=== PATIENT | female | born 1990 | race Caucasian/White ===

== ENCOUNTER → 2017-12-26 18:09 | Outpatient (REF) | payer BC, SELFPAY ==
[2017-12-26 20:55] LABS: Abs Immature Grans 0.02 k/cumm (0.0-0.09); Absolute Basophil Count 0.06 k/cumm (0.0-0.2); Absolute Lymphocyte Count 3.62 k/cumm (1.2-3.4); Absolute Monocyte Count 0.55 k/cumm (0.11-0.7); Basophils % 0.6; Eosinophils % 5.2; HCT 41.8 % (36.0-46.0); HGB 14.3 g/dL (12.0-15.5); Immature Grans % 0.2; Lymphocytes % 37.5; Mean Corp. HGB Concentration 34.2 g/dL (32.0-36.0); Mean Corpuscular Hemoglobin 29.8 pg (27.0-33.0); Mean Corpuscular Volume 87.1 fL (80-95); Mean Platelet Volume 10.4 fL (8.0-11.0); Monocytes % 5.7; Neutrophils % 50.8; Platelet Count 359 x1000/uL (130-400); RBC Distribution Width 12.2 % (11.7-14.6); White Blood Cell Count 9.65 k/cumm (4.4-10.8)
[2017-12-26 21:37] LABS: ESR 9 MM/HR (0-20)
[2017-12-26 21:44] LABS: ALT 35 U/L (12-78); AST 20 U/L (15-37); Albumin 4.1 g/dL (3.4-5.0); Alkaline Phosphatase 46 U/L (46-116); Amylase 35 U/L (25-115); Anion Gap 14.6 mmol/L (3-11); BUN 12 mg/dL (7-18); Bilirubin, Total 0.3 mg/dL (0.2-1.0); CO2 22.4 mmol/L (21.0-32.0); CREATININE 0.81 mg/dL (0.55-1.02); Calcium 8.9 mg/dL (8.5-10.1); Chloride 104 mmol/L (98-107); Glucose 81 mg/dL (70-100); Lipase 111 U/L (73-393); Potassium 3.8 mmol/L (3.5-5.1); Sodium 141 mmol/L (136-145); Total Protein 7.2 g/dL (6.4-8.2)
== END ==
LOC: NCHCN 18:09
PROVIDERS: PCP Internal Medicine; Visit Provider Nurse Practitioner
DX: R10.9 Unspecified abdominal pain (principal)
CPT/HCPCS: 80053; 83690; 85652; 82150; 85025; 86140

== ENCOUNTER 2018-01-27 16:22 | Outpatient (CLI) | payer BC, SELFPAY ==
[2018-01-27 18:19] LABS: TSH (W/Ref FT4) 2.72 uIU/mL (0.358-3.74)
[2018-01-29 14:21] LABS: Chlamydia Result Negative; GC Result Negative; Specimen Description CERVIX
== END 2018-01-27 16:42 ==
PROVIDERS: PCP Internal Medicine; Visit Provider Obstetrics & Gynecology Gynecology
DX: Z11.3 Encounter for screening for infections with a predominantly sexual mode of transmission (principal); Z13.29 Encounter for screening for other suspected endocrine disorder; R53.83 Other fatigue
CPT/HCPCS: 36415; 87491; 87591; 84443

== ENCOUNTER 2019-01-15 10:31 | Outpatient (REF) | payer BC, SELFPAY ==
[2019-01-16 13:45] LABS: Chlamydia Result Negative; GC Result Negative; Specimen Description CERVIX
== END 2019-01-15 10:51 ==
LOC: LBN 10:31
PROVIDERS: PCP Internal Medicine; Visit Provider Nurse Practitioner Women's Health
DX: Z11.3 Encounter for screening for infections with a predominantly sexual mode of transmission (principal)
CPT/HCPCS: 87491; 87591

== ENCOUNTER 2019-03-13 11:21 | Outpatient (REF) | payer BC, SELFPAY ==
--- NOTE | 2019-03-13 10:20 | PAPFT_PTH ---
PATIENT: Millicent Tijerina LOC: [facility] U#:[id number] AGE/SX: 29/F ROOM: RE03/13/[address]: Shirlene Doherty : 1990 BED: DIS: 03/13/2019 SPEC #: [id number] RECD: 03/13/19 12:49 STATUS: JENNIFER REQ #: [id number] TIAN: 03/13/19 10:[address]: Shirlene Doherty DEPT: [facility] Cytology RECD BY: Marie Torres ENTERED: 03/13/19 12:50 SP TYPE: PAPFT OTHR DR: José Miguel Ahumada Tissues: 1 - CX/ENDOCX FOR PAP SMEARS Procedures: PAP THIN PREP/UVM Screening HPV DNA PROBE Comments: [id number]
== END 2019-03-13 11:41 ==
LOC: LBN 11:21
PROVIDERS: PCP Internal Medicine; Visit Provider Obstetrics & Gynecology Gynecology
DX: Z12.4 Encounter for screening for malignant neoplasm of cervix (principal); Z11.51 Encounter for screening for human papillomavirus (HPV)
CPT/HCPCS: 88142; 87624

== ENCOUNTER 2020-04-25 09:37 | Outpatient (REF) | payer BC, SELFPAY ==
--- NOTE | 2020-04-25 08:50 | PAPFT_PTH ---
PATIENT: Millicent Tijerina LOC: [facility] U#:[id number] AGE/SX: 30/F ROOM: RE04/25/[address]: Maria Antonia Hillman NP : 1990 BED: DIS: 04/25/2020 SPEC #: [id number] RECD: 04/25/20 18:28 STATUS: JENNIFER REQ #: [id number] TIAN: 04/25/20 08:[address]: Maria Antonia Hillman NP DEPT: [facility] Cytology RECD BY: Marie Torres ENTERED: 04/25/20 18:29 SP TYPE: PAPFT OTHR DR: José Miguel Ahumada Tissues: 1 - CX/ENDOCX FOR PAP SMEARS Procedures: PAP THIN PREP/UVM Screening Comments: [id number]
== END 2020-04-25 09:57 ==
LOC: LBN 09:37
PROVIDERS: PCP Internal Medicine; Visit Provider Nurse Practitioner Women's Health
DX: Z12.4 Encounter for screening for malignant neoplasm of cervix (principal); R87.615 Unsatisfactory cytologic smear of cervix
CPT/HCPCS: 88142

== ENCOUNTER 2020-05-31 12:01 | Outpatient (REF) | payer BC, SELFPAY ==
--- NOTE | 2020-05-31 10:50 | PAPFT_PTH ---
PATIENT: Millicent Tijerina LOC: [facility] U#:[id number] AGE/SX: 30/F ROOM: RE05/31/[address]: Maria Antonia Hillman NP : 1990 BED: DIS: 05/31/2020 SPEC #: [id number] RECD: 05/31/20 13:00 STATUS: JENNIFER REDiego #: [id number] TIAN: 05/31/20 10:[address]: Maria Antonia Hillman NP DEPT: [facility] Cytology RECD BY: Marie Torres ENTERED: 05/31/20 13:00 SP TYPE: PAPFT OTHR DR: José Miguel Ahumada Tissues: 1 - CX/ENDOCX FOR PAP SMEARS Procedures: PAP THIN PREP/UVM Screening HPV DNA PROBE Comments: [id number]
== END 2020-05-31 12:21 ==
LOC: LBN 12:01
PROVIDERS: PCP Internal Medicine; Visit Provider Nurse Practitioner Women's Health
DX: Z12.4 Encounter for screening for malignant neoplasm of cervix (principal); Z11.51 Encounter for screening for human papillomavirus (HPV)
CPT/HCPCS: 88142; 87624

== ENCOUNTER 2021-06-08 16:41 | Outpatient (REF) | payer OTHER, SELFPAY ==
[2021-06-09 21:16] LABS: Chlamydia Result Negative (Negative); GC Result Negative (Negative)
== END 2021-06-08 16:42 | disposition home or self-care (01) ==
LOC: LBN 16:41
PROVIDERS: PCP Internal Medicine; Visit Provider Obstetrics & Gynecology Gynecology
DX: Z11.3 Encounter for screening for infections with a predominantly sexual mode of transmission (principal)
CPT/HCPCS: 87491; 87591

== ENCOUNTER 2022-06-19 14:24 | Outpatient (REF) | payer OTHER, SELFPAY ==
[2022-06-20 14:25] LABS: Chlamydia Result Negative (Negative); GC Result Negative (Negative)
== END 2022-06-19 14:25 | disposition home or self-care (01) ==
LOC: LBN 14:24
PROVIDERS: PCP Internal Medicine; Visit Provider Obstetrics & Gynecology Gynecology
DX: Z11.3 Encounter for screening for infections with a predominantly sexual mode of transmission (principal)
CPT/HCPCS: 87491; 87591

== ENCOUNTER 2023-06-24 11:14 | Outpatient (REF) | payer BC, OTHER, SELFPAY ==
--- NOTE | 2023-06-24 10:00 | PAPFT_PTH ---
PATIENT: Millicent Tijerina LOC: [facility]#:[id number] AGE/SX: 33/F ROOM: RE06/24/[address]: Shirlene Doherty : 1990 BED: DIS: 06/24/2023 SPEC #: [id number] RECD: 06/24/23 12:51 STATUS: JENNIFER REDiego #: [id number] TIAN: 06/24/23 10:[address]: Shirlene Doherty DEPT: [facility] Cytology RECD BY: Marie Torres ENTERED: 06/24/23 12:51 SP TYPE: PAPFT OTHR DR: José Miguel Ahumada Tissues: 1 - CX/ENDOCX FOR PAP SMEARS Procedures: PAP THIN PREP/UVM Screening HPV DNA PROBE Comments: [id number]
== END 2023-06-24 11:15 | disposition home or self-care (01) ==
LOC: LBN 11:14
PROVIDERS: PCP Internal Medicine; Visit Provider Obstetrics & Gynecology Gynecology
DX: Z12.4 Encounter for screening for malignant neoplasm of cervix (principal)
CPT/HCPCS: 88142; 87624

== ENCOUNTER 2023-06-24 11:50 | Outpatient (REF) | payer BC, OTHER, SELFPAY ==
[2023-06-25 14:38] LABS: Chlamydia Result Negative (Negative); GC Result Negative (Negative)
== END 2023-06-24 11:51 | disposition home or self-care (01) ==
LOC: LBN 11:50
PROVIDERS: PCP Internal Medicine; Visit Provider Obstetrics & Gynecology Gynecology
DX: Z11.3 Encounter for screening for infections with a predominantly sexual mode of transmission (principal)
CPT/HCPCS: 87491; 87591

== ENCOUNTER 2023-08-14 14:23 | Outpatient (REF) | payer BC, OTHER, SELFPAY ==
[2023-08-14 15:24] LABS: ALT 40 U/L (14-59); AST 30 U/L (15-37); Albumin 3.7 g/dL (3.4-5.0); Alkaline Phosphatase 64 U/L (46-116); Anion Gap 10.3 mmol/L (3-11); BUN 15 mg/dL (7-18); Bilirubin, Total 0.4 mg/dL (0.2-1.0); CO2 25.7 mmol/L (21.0-32.0); CREATININE 0.9 mg/dL (0.55-1.02); Calcium 9.1 mg/dL (8.5-10.1); Calculated LDL 182 mg/dL (<100); Chloride 104 mmol/L (98-107); Cholesterol 275 mg/dL (<200); Glucose 109 mg/dL (74-106); HDL Cholesterol 61 mg/dL (40-60); Potassium 4.2 mmol/L (3.5-5.1); Sodium 140 mmol/L (136-145); Total Protein 7.1 g/dL (6.4-8.2); Triglyceride 163 mg/dL (<150)
== END 2023-08-14 14:24 | disposition home or self-care (01) ==
LOC: NCHCN 14:23
PROVIDERS: PCP Family Medicine; Visit Provider Family Medicine
DX: Z00.00 Encounter for general adult medical examination without abnormal findings (principal)
CPT/HCPCS: 80053; 80061

== ENCOUNTER 2023-12-09 09:02 | Outpatient (REF) | payer BC, SELFPAY ==
[2023-12-09 14:57] LABS: Abs Immature Grans 0.01 10^3/uL (0.0-0.06); Absolute Basophil Count 0.08 10^3/uL (0.0-0.2); Absolute Eosinophil Count 0.28 10^3/uL (0.0-0.7); Absolute Lymphocyte Count 3.67 10^3/uL (1.2-3.4); Absolute Monocyte Count 0.38 10^3/uL (0.1-0.8); Absolute Neutrophil Count 4.59 10^3/uL (1.2-6.7); Basophils % 0.9 %; Eosinophils % 3.1 %; HCT 43.7 % (36.0-46.0); HGB 14.7 g/dL (11.2-15.7); Immature Grans % 0.1 %; Lymphocytes % 40.7 %; MCHC 33.6 % (32.0-36.0); MCV 89 fL (80-95); MPV 9.8 fL (8.0-11.0); Monocytes % 4.2 %; Platelet Count 331 10^3/uL (130-400); RDW 11.9 % (11.7-14.6); RDW-SD 39.3 fL; WBC 9.01 10^3/uL (4.4-10.8)
[2023-12-09 15:11] LABS: Iron 169 ug/dL (50-170); Total Iron Binding Capacity 463 ug/dL (250-450); Transferrin Sat 37 % (15-50)
[2023-12-09 15:25] LABS: Ferritin 56 ng/mL (8-252); TSH (W/Ref FT4) 1.54 uIU/mL (0.36-3.74)
== END 2023-12-09 09:03 | disposition home or self-care (01) ==
LOC: NCHCN 09:02
PROVIDERS: PCP Family Medicine; Visit Provider Family Medicine
DX: R53.83 Other fatigue (principal); R71.8 Other abnormality of red blood cells
CPT/HCPCS: 82728; 83540; 83550; 84443; 85025

== ENCOUNTER 2024-10-30 01:36 | Outpatient (CLI) | payer BC, MEDICAID, SELFPAY ==
[2024-10-30 10:34] LABS: Panorama Kit Sent via Fed Ex
[2024-10-30 10:40] LABS: Abs Immature Grans 0.03 10^3/uL (0.0-0.06); Absolute Eosinophil Count 0.29 10^3/uL (0.0-0.7); Absolute Lymphocyte Count 3.23 10^3/uL (1.2-3.4); Absolute Monocyte Count 0.58 10^3/uL (0.1-0.8); Basophils % 0.5 %; Eosinophils % 2.6 %; HCT 36.8 % (36.0-46.0); HGB 12.3 g/dL (11.2-15.7); Immature Grans % 0.3 %; Lymphocytes % 29.3 %; MCH 29.6 pg (27.0-33.0); MCHC 33.4 % (32.0-36.0); MCV 89 fL (80-95); MPV 9.1 fL (8.0-11.0); Monocytes % 5.3 %; Platelet Count 346 10^3/uL (130-400); RBC 4.15 10^6/uL (3.93-5.22); RDW 12.1 % (11.7-14.6); RDW-SD 38.9 fL; WBC 11.03 10^3/uL (4.4-10.8)
[2024-10-30 10:41] LABS: Absolute Basophil Count 0.06 10^3/uL (0.0-0.2); Absolute Neutrophil Count 6.84 10^3/uL (1.2-6.7)
[2024-10-30 11:37] LABS: ALT 50 U/L (14-59); AST 20 U/L (15-37); Albumin 3.3 g/dL (3.4-5.0); Alkaline Phosphatase 56 U/L (46-116); Anion Gap 8.4 mmol/L (3-11); BUN 10 mg/dL (7-18); Bilirubin, Total 0.3 mg/dL (0.2-1.0); CO2 26.6 mmol/L (21.0-32.0); CREATININE 0.6 mg/dL (0.55-1.02); Calcium 9.1 mg/dL (8.5-10.1); Chloride 103 mmol/L (98-107); Estimated GFR 119.23 (mL/min/1.73m2); Glucose 88 mg/dL (74-106); Potassium 3.8 mmol/L (3.5-5.1); Sodium 138 mmol/L (136-145); TSH (W/Ref FT4) 2.55 uIU/mL (0.36-3.74); Total Protein 6.6 g/dL (6.4-8.2)
[2024-10-30 11:50] LABS: Hemoglobin A1C 5.2 % (<5.7)
[2024-10-30 19:06] LABS: Hepatitis B Surface Ag Negative (Negative)
[2024-10-30 19:38] LABS: HIV-1/2 Ag & Ab Screen Negative (Negative); Hepatitis C Ab w Rflx HCV PCR Negative (Negative)
[2024-11-02 09:44] LABS: Rubella IgG Ab (UVM) Positive (See Note); Varicella IgG Antibody Positive (See Note)
[2024-11-02 22:26] LABS: Syphilis IgG w/Reflex Nonreactive (Nonreactive)
== END 2024-10-30 01:37 | disposition home or self-care (01) ==
LOC: LBO 01:36
PROVIDERS: PCP Family Medicine; Visit Provider Advanced Practice Midwife
DX: Z34.91 Encounter for supervision of normal pregnancy, unspecified, first trimester (principal)
CPT/HCPCS: 36415; 80053; 86787; 86803; 86850; 86900; 86901; 87340; 87389; 83036; 84443; 85025; 86762; 86780

== ENCOUNTER 2024-10-30 14:37 | Outpatient (REF) | payer BC, MEDICAID, SELFPAY ==
[2024-10-30 15:51] LABS: *AMPHETAMINES SCREEN URINE Negative (Negative); *BARBITURATES SCREEN URINE Negative (Negative); *BENZODIAZEPINES SCREEN URINE Negative (Negative); Cannabinoids THC Negative (Negative); Cocaine Screen,Urine Negative (Negative); METHADONE URINE SCREEN Negative (Negative); OPIATES URINE SCREEN Negative (Negative)
[2024-10-30 15:55] LABS: COMMENT (LAB VIEW ONLY) 31.77 mg/dL; Tricyclic Antidepressants Negative (Negative)
[2024-10-30 16:10] LABS: PROTEIN < 6.0 mg/dL
[2024-11-02 13:01] LABS: Chlamydia Result Negative (Negative); GC Result Negative (Negative)
[2024-11-04 09:54] LABS: Buprenorphine Negative ng/mL (Cutoff: 5.0); Norbuprenorphine Negative ng/mL (Cutoff: 2.5)
== END 2024-10-30 14:38 | disposition home or self-care (01) ==
LOC: LBN 14:37
PROVIDERS: PCP Family Medicine; Visit Provider Advanced Practice Midwife
DX: Z34.91 Encounter for supervision of normal pregnancy, unspecified, first trimester
CPT/HCPCS: 80307; 80348; 87491; 87591; 82565; 84156; 87086

== ENCOUNTER 2025-02-12 04:01 | Outpatient (CLI) | payer BC, MEDICAID, SELFPAY ==
[2025-02-12 09:38] LABS: Abs Immature Grans 0.05 10^3/uL (0.0-0.06); HCT 35.4 % (36.0-46.0); HGB 11.9 g/dL (11.2-15.7); Immature Grans % 0.4 %; MCH 29.6 pg (27.0-33.0); MCHC 33.6 % (32.0-36.0); MCV 88 fL (80-95); MPV 9.0 fL (8.0-11.0); Platelet Count 343 10^3/uL (130-400); RBC 4.02 10^6/uL (3.93-5.22); RDW 12.6 % (11.7-14.6); RDW-SD 41.0 fL; WBC 12.40 10^3/uL (4.4-10.8)
[2025-02-12 10:20] LABS: Glucose,1 Hr (Glucola) 134 mg/dL (80-140)
[2025-02-12 10:33] LABS: TSH (W/Ref FT4) 1.89 uIU/mL (0.36-3.74)
== END 2025-02-12 04:02 | disposition home or self-care (01) ==
LOC: LBO 04:01
PROVIDERS: Advanced Practice Midwife; PCP Family Medicine; Visit Provider Advanced Practice Midwife
DX: Z34.92 Encounter for supervision of normal pregnancy, unspecified, second trimester (principal); Z83.49 Family history of other endocrine, nutritional and metabolic diseases; R79.89 Other specified abnormal findings of blood chemistry; Z3A.27 27 weeks gestation of pregnancy
CPT/HCPCS: 36415; 82950; 84443; 85025

== ENCOUNTER 2025-02-12 09:28 | Outpatient (REF) | payer BC, MEDICAID, SELFPAY ==
[2025-02-12 10:38] LABS: Cannabinoids THC Negative (Negative); METHADONE URINE SCREEN Negative (Negative)
[2025-02-15 10:21] LABS: Fentanyl Scr w/Rfx Confirm Negative ng/mL (<1)
== END 2025-02-12 09:29 | disposition home or self-care (01) ==
LOC: LBN 09:28
PROVIDERS: PCP Family Medicine; Visit Provider Advanced Practice Midwife
DX: Z34.92 Encounter for supervision of normal pregnancy, unspecified, second trimester (principal); Z3A.27 27 weeks gestation of pregnancy
CPT/HCPCS: 80307; 87480; 87510; 87660

== ENCOUNTER → 2025-03-18 03:39 | Outpatient (CLI) | payer BC, MEDICAID, SELFPAY ==
--- NOTE | 2025-03-18 07:10 | DI.US_ITS ---
Exam(s) US OB MARY WEIGHT EXAM: US OB MARY WEIGHT CLINICAL HISTORY: EFW MARY for Chronic Hypertension,o10.919. TECHNIQUE: Transabdominal obstetrical ultrasound was performed. COMPARISON: US from 01/22/2025 FINDINGS: There is a single viable intrauterine gestation with cardiac activity identified-142 bpm The fetus is presently in cephalic position . Amniotic fluid: There is a normal amount of amniotic fluid with an MARY of 18.0cm. Placental location: The placenta is posterior grade 1,with no evidence of placenta previa. Dating parameters place this at approximately 33 weeks gestational age, implying ANJEL of 05/06/2025. BPD measures 33 weeks and 5 days HC measures 32 weeks and 4 days AC measures 32 weeks and 3 days FL measures 33 weeks and 3 days Estimated weight is 2069 gm-4 pounds 9 ounces Fetus is at the 54th percentile on the Hadlock scale. IMPRESSION:: Viable 3rd trimester gestation, as described above. DATA REPOSITORY:
== END ==
LOC: DI 03:39
PROVIDERS: PCP Family Medicine; Visit Provider Advanced Practice Midwife
DX: O10.913 Unspecified pre-existing hypertension complicating pregnancy, third trimester (principal); Z3A.33 33 weeks gestation of pregnancy
CPT/HCPCS: 76816

== ENCOUNTER 2025-04-02 02:41 | Outpatient (CLI) | payer BC, MEDICAID, SELFPAY ==
[2025-04-02 08:07] LABS: Glucose,1 Hr (Glucola) 89 mg/dL (80-140)
== END 2025-04-02 02:42 | disposition home or self-care (01) ==
LOC: LBO 02:41
PROVIDERS: PCP Family Medicine; Visit Provider Advanced Practice Midwife
DX: E66.811 Obesity, class 1 (principal); Z34.93 Encounter for supervision of normal pregnancy, unspecified, third trimester
CPT/HCPCS: 36415; 82950

== ENCOUNTER 2025-04-02 08:54 | Outpatient (CLI) | payer BC, MEDICAID, SELFPAY ==
[2025-04-02] VITALS (9 sets, daily range): BP systolic 123–151; BP diastolic 78–94; PULSE 75–85; RESP 18; TEMP 36.6
[2025-04-02 10:12] LABS: HCT 38.4 % (36.0-46.0); HGB 13.2 g/dL (11.2-15.7); MCH 29.5 pg (27.0-33.0); MCHC 34.4 % (32.0-36.0); MCV 86 fL (80-95); MPV 9.6 fL (8.0-11.0); Platelet Count 338 10^3/uL (130-400); RBC 4.48 10^6/uL (3.93-5.22); RDW 12.5 % (11.7-14.6); RDW-SD 38.9 fL; WBC 12.22 10^3/uL (4.4-10.8)
[2025-04-02 10:33] LABS: ALT 21 U/L (10-49); AST 18 U/L (<34); Albumin 3.9 g/dL (3.4-5.0); Alkaline Phosphatase 110 U/L (46-116); Anion Gap 9 mmol/L (3-11); BUN 8 mg/dL (9-23); Bilirubin, Total 0.40 mg/dL (0.2-1.2); CO2 21.0 mmol/L (20.0-31.0); Calcium 8.6 mg/dL (8.3-10.6); Chloride 108 mmol/L (98-107); Glucose 70 mg/dL (74-106); Potassium 3.8 mmol/L (3.5-5.1); Sodium 138 mmol/L (136-145); Total Protein 6.4 g/dL (5.7-8.2)
--- NOTE | 2025-04-02 10:39 | W.OBNST ---
Date of service: 04/02/25 Time of Service: 10:39 NST Evaluation Reason for NST Reasons for Nonstress Test: CHRONIC HYPERTENSION Gestational Age Gestational Age in Weeks and Days: 34 Weeks and 4Days Test and Monitor Explained Test/Monitor Explained: Test Explained Vital Signs Blood Pressure: 138/79 Pulse: 85 Temperature: 97.9 F NST Information Date on Monitor: 04/02/25 Time on Monitor: 09:05 NST Interventions: Notify Provider Contraction Frequency: irreg NST Evaluation Patient States Movement: Present FHR Baseline: 140 Variability: Moderate 6-25 bpm Accelerations: 15x15 Decelerations: None NST Results: Reactive Note Ultrasound Done: N/A. NST Note Note: Consult with Dr. Wilkins, no change to medication, Continue weekly NST Labs done and pending NST Reviewed and Verified by: Sheyla Wilder
== END 2025-04-02 10:30 ==
LOC: BCD 08:59 → OBS 10:10
PROVIDERS: PCP Family Medicine; Visit Provider Advanced Practice Midwife
DX: O09.513 Supervision of elderly primigravida, third trimester (principal); Z3A.34 34 weeks gestation of pregnancy; O13.3 Gestational [pregnancy-induced] hypertension without significant proteinuria, third trimester
CPT/HCPCS: 36415; 80053; 85027; 59025; 82565; 84156

== ENCOUNTER 2025-04-08 07:16 | Outpatient (CLI) | payer BC, MEDICAID, SELFPAY ==
[2025-04-08 16:40] VITALS: BP 154/69; PULSE 86; TEMP 36.7
[2025-04-08 16:50] VITALS: BP 138/77; PULSE 79; RESP 16; TEMP 36.6
--- NOTE | 2025-04-08 17:22 | W.OBNST ---
Date of service: 04/08/25 Time of Service: 17:22 NST Evaluation Reason for NST Reasons for Nonstress Test: GDM-DIET CONTROLLED Gestational Age Gestational Age in Weeks and Days: 35 Weeks and 3Days Test and Monitor Explained Test/Monitor Explained: Test Explained and Monitor Explained Vital Signs Blood Pressure: 154/69 Pulse: 86 Temperature: 98.1 F Urine Results Urine Protein: Positive Urine Ketones: Positive Urine Glucose: Negative Urine Blood: Negative NST Information Date on Monitor: 04/08/25 Time on Monitor: 16:05 Date off Monitor: 04/08/25 Time off Monitor: 16:40 Total Time on Monitor: 35 NST Interventions: PO Hydration NST Evaluation Patient States Movement: Present FHR Baseline: 135 Variability: Moderate 6-25 bpm Accelerations: 15x15 Decelerations: None NST Results: Reactive Note Ultrasound Done: N/A. NST Note Note: Millicent is here for weekly NST for chronic hypertension. reactive NST. RTO weekly for NST NST Reviewed and Verified by: Agustina Castellanos
[2025-04-08 17:23] VITALS: BP 154/69; PULSE 86; TEMP 36.7
== END 2025-04-08 16:55 ==
LOC: BCD 09:36 → OBS 15:44
PROVIDERS: PCP Family Medicine; Visit Provider Advanced Practice Midwife
DX: O24.410 Gestational diabetes mellitus in pregnancy, diet controlled (principal); O13.3 Gestational [pregnancy-induced] hypertension without significant proteinuria, third trimester; Z3A.35 35 weeks gestation of pregnancy
CPT/HCPCS: 59025

== ENCOUNTER → 2025-04-13 01:32 | Outpatient (CLI) | payer BC, MEDICAID, SELFPAY ==
--- NOTE | 2025-04-13 07:10 | DI.US_ITS ---
Exam(s) US OB MARY WEIGHT EXAM: US OB MARY WEIGHT CLINICAL HISTORY: EFW MARY for HTN in ,O10.919. TECHNIQUE: Transabdominal obstetrical ultrasound performed. COMPARISON: US US OB MARY WEIGHT from 03/18/2025 FINDINGS: Number of fetuses: 1 position: CEPHALIC Placental location: There is a grade 1 posterior placenta. BIOMETRIC DATA: BPD: 9.07cm, 36weeks 5days HC: 31.67cm, 35weeks 4days AC: 32.14cm, 36weeks FL: 7.03cm, 36weeks EFW: 2,843.94g, 6lb 4.52oz, 50% Composite Age: 36weeks 1day ANJEL: 05/10/2025 Heart Rate: 132bpm Amniotic fluid index: 12.2cm. The largest pocket is 4.8 cm. IMPRESSION: 1. Single live intrauterine gestation as above. 2. Estimated weight is 2844gms. This is the 50th percentile. 3. Amniotic fluid index is 12.2 cm. The largest pocket is 4.8 cm. DATA REPOSITORY:
== END ==
LOC: DI 01:32
PROVIDERS: PCP Family Medicine; Visit Provider Advanced Practice Midwife
DX: O10.913 Unspecified pre-existing hypertension complicating pregnancy, third trimester (principal); Z3A.36 36 weeks gestation of pregnancy
CPT/HCPCS: 76816

== ENCOUNTER 2025-04-13 07:22 | Outpatient (CLI) | payer BC, MEDICAID, SELFPAY ==
[2025-04-13 07:45] VITALS: BP 153/74; PULSE 79
[2025-04-13 07:49] VITALS: BP 137/71; PULSE 77
[2025-04-13 07:53] VITALS: BP 150/71; PULSE 77
[2025-04-13 09:01] LABS: HCT 36.4 % (36.0-46.0); HGB 12.2 g/dL (11.2-15.7); MCH 29.3 pg (27.0-33.0); MCHC 33.5 % (32.0-36.0); MCV 87 fL (80-95); MPV 10.1 fL (8.0-11.0); Platelet Count 327 10^3/uL (130-400); RBC 4.17 10^6/uL (3.93-5.22); RDW 12.7 % (11.7-14.6); RDW-SD 40.1 fL; WBC 12.20 10^3/uL (4.4-10.8)
[2025-04-13 09:06] VITALS: BP 137/71; PULSE 77
[2025-04-13 09:11] LABS: ALT 19 U/L (10-49); AST 16 U/L (<34); Albumin 3.6 g/dL (3.4-5.0); Alkaline Phosphatase 107 U/L (46-116); Anion Gap 6.5 mmol/L (3-11); BUN 10 mg/dL (9-23); Bilirubin, Total 0.30 mg/dL (0.2-1.2); CO2 21.5 mmol/L (20.0-31.0); Calcium 8.9 mg/dL (8.3-10.6); Chloride 111 mmol/L (98-107); Glucose 115 mg/dL (74-106); Potassium 4.0 mmol/L (3.5-5.1); Sodium 139 mmol/L (136-145); Total Protein 6.0 g/dL (5.7-8.2)
[2025-04-13 09:11] LABS: Prot/Crea Ur Ratio 0.26 mg/mg Cr
[2025-04-13 09:13] LABS: TSH (W/Ref FT4) 2.91 uIU/mL (0.55-4.78)
--- NOTE | 2025-04-13 12:00 | W.OBNST ---
Date of service: 04/13/25 Time of Service: 12:00 NST Evaluation Reason for NST Reasons for Nonstress Test: CHRONIC MATERNAL DM Gestational Age Gestational Age in Weeks and Days: 36 Weeks and 1Days Test and Monitor Explained Test/Monitor Explained: Test Explained, Monitor Explained and Patient Verbalized Understanding Vital Signs Blood Pressure: 137/71 Pulse: 77 NST Information Date on Monitor: 04/13/25 Time on Monitor: 07:37 Date off Monitor: 04/13/25 Time off Monitor: 09:08 Total Time on Monitor: 91 NST Interventions: PO Hydration NST Evaluation Patient States Movement: Present FHR Baseline: 135 Variability: Moderate 6-25 bpm Accelerations: 15x15 Decelerations: None NST Results: Reactive Note Ultrasound Done: N/A. NST Note Note: Millicent [facility]. Reactive NST B.P. recheck 137/71. Millicent feels that the cuff was placed incorrectly on her elbow the first time. preeclampsia screen drawn. Awaiting results. US today with 50%ile EFW and normal fluid.Follow up with weekly NST. NST Reviewed and Verified by: Agustina Castellanos
[2025-04-13 12:01] VITALS: BP 137/71; PULSE 77
== END 2025-04-13 09:15 | disposition home health service (06) ==
LOC: BCD 07:26 → OBS 07:39
PROVIDERS: Advanced Practice Midwife; PCP Family Medicine; Visit Provider Advanced Practice Midwife
DX: O13.3 Gestational [pregnancy-induced] hypertension without significant proteinuria, third trimester (principal); Z3A.37 37 weeks gestation of pregnancy; R80.9 Proteinuria, unspecified
CPT/HCPCS: 36415; 80053; 85027; 59025; 82565; 84156; 84443; 87081

== ENCOUNTER 2025-04-18 10:02 | Outpatient (CLI) | payer BC, MEDICAID, SELFPAY ==
[2025-04-18 10:11] VITALS: BP 142/67; PULSE 115; TEMP 36.8
[2025-04-18 10:12] VITALS: BP 156/80; PULSE 115
[2025-04-18 10:35] VITALS: BP 142/67; PULSE 91
--- NOTE | 2025-04-18 11:56 | PDOC.NST_ITS ---
Date of service: 04/18/25 Time of Service: 11:56 NST Evaluation Reason for NST Reasons for Nonstress Test: OTHER, SEE COMMENT Reason for NST Other: dropping 24 hour urine off Gestational Age Gestational Age in Weeks and Days: 36 Weeks and 6Days Test and Monitor Explained Test/Monitor Explained: Test Explained, Monitor Explained and Patient Verbalized Understanding Vital Signs Blood Pressure: 142/67 Pulse: 115 Temperature: 98.2 F NST Information Date on Monitor: 04/18/25 Time on Monitor: 10:05 Date off Monitor: 04/18/25 Time off Monitor: 10:37 Total Time on Monitor: 32 NST Interventions: PO Hydration Contraction Frequency: 0 NST Evaluation Patient States Movement: Present FHR Baseline: 140 Variability: Moderate 6-25 bpm Accelerations: 15x15 Decelerations: None NST Results: Reactive Note Ultrasound Done: N/A. NST Note Note: Millicent completed the 24 hour urine and dropped it off today. reactive NST. BP as above. Repeat BP 142/67. [facility]. IOL planned at 38 weeks. NST Reviewed and Verified by: Agustina Castellanos
[2025-04-18 11:57] VITALS: BP 142/67; PULSE 115; TEMP 36.8
== END 2025-04-18 10:43 ==
LOC: BCD 10:03 → OBS 10:09
PROVIDERS: PCP Family Medicine; Visit Provider Advanced Practice Midwife
DX: O13.3 Gestational [pregnancy-induced] hypertension without significant proteinuria, third trimester (principal); Z3A.36 36 weeks gestation of pregnancy
CPT/HCPCS: 59025

== ENCOUNTER 2025-04-18 12:24 | Outpatient (REF) | payer BC, MEDICAID, SELFPAY ==
[2025-04-18 14:48] LABS: Total Volume 2650 mL
== END 2025-04-18 12:25 | disposition home or self-care (01) ==
LOC: LBN 12:24
PROVIDERS: PCP Family Medicine; Visit Provider Advanced Practice Midwife
DX: O10.913 Unspecified pre-existing hypertension complicating pregnancy, third trimester (principal)
CPT/HCPCS: 81050; 84155

== ENCOUNTER 2025-04-19 10:29 | Inpatient (IN) | payer BC, MEDICAID, SELFPAY ==
[2025-04-19] VITALS (34 sets, daily range): BP systolic 137–151; BP diastolic 70–93; PULSE 58–88; RESP 16; TEMP 36.6–36.9; O2SAT 99
[2025-04-19 08:39] LABS: HCT 37.0 % (36.0-46.0); HGB 12.5 g/dL (11.2-15.7); MCH 29.6 pg (27.0-33.0); MCHC 33.8 % (32.0-36.0); MCV 88 fL (80-95); MPV 9.9 fL (8.0-11.0); Platelet Count 321 10^3/uL (130-400); RBC 4.22 10^6/uL (3.93-5.22); RDW 12.7 % (11.7-14.6); RDW-SD 40.7 fL; WBC 12.34 10^3/uL (4.4-10.8)
[2025-04-19 09:01] LABS: ALT 21 U/L (10-49); AST 19 U/L (<34); Albumin 3.7 g/dL (3.2-5.0); Alkaline Phosphatase 116 U/L (46-116); Anion Gap 9.4 mmol/L (3-11); BUN 13 mg/dL (9-23); Bilirubin, Total 0.40 mg/dL (0.2-1.2); CO2 20.6 mmol/L (20.0-31.0); Calcium 8.8 mg/dL (8.3-10.6); Chloride 108 mmol/L (98-107); Glucose 108 mg/dL (74-106); Potassium 3.6 mmol/L (3.5-5.1); Sodium 138 mmol/L (136-145); Total Protein 6.3 g/dL (5.7-8.2)
[2025-04-19 09:25] LABS: Prot/Crea Ur Ratio 0.21 mg/mg Cr
--- NOTE | 2025-04-19 09:56 | PDOC.NST_ITS ---
Date of service: 04/19/25 Time of Service: 09:56 NST Evaluation Reason for NST Reasons for Nonstress Test: OTHER, SEE COMMENT Reason for NST Other: Preeclampsia rule out Gestational Age Gestational Age in Weeks and Days: 37 Weeks and 0Days Test and Monitor Explained Test/Monitor Explained: Test Explained, Monitor Explained and Patient Verbalized Understanding Urine Results Urine Protein: Positive Urine Ketones: Negative Urine Glucose: Negative Urine Blood: Negative NST Information Date on Monitor: 04/19/25 Time on Monitor: 08:11 Date off Monitor: 04/19/25 Time off Monitor: 09:06 Total Time on Monitor: 55 NST Interventions: PO Hydration Contraction Frequency: 2-13 mins apart and irregular. Mild upon palpation. NST Evaluation Patient States Movement: Present FHR Baseline: 145 Variability: Moderate 6-25 bpm Accelerations: 15x15 Decelerations: None NST Results: Reactive Note Ultrasound Done: N/A. NST Note Note: Millicent presents from work for NST and preeclampsia labs. Reviewed normal preeclampsia labs with her. Consultation with Dr Norton re: 24 hour urine protein [address] norton met Millicent and Millicent agrees to I OL today. She will return when her get shome form where he works 2 hours away. Reviewed cervical ripening process. NST Reviewed and Verified by: Agustina Castellanos
[2025-04-19] MEDS: miSOPROStol 50 MCG TAB PO ×3 (14:34→23:01)
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
--- NOTE | 2025-04-19 22:15 | W.PM.OBNL1 ---
Date of service: 04/19/25 Time of Service: 22:15 Informed Consent Informed Consent: Induction of Labor and Risk,Benefits,Alternatives Discussed Pelvic Exam Effacement (%): 50 station: -1 Cervix Position: posterior Consistency: soft Vaginal Exam Presentation: Cephalic Comments: unable to reach cervical os Contractions Monitor Mode: External Contraction Frequency(min): every 3 min Contraction Duration(sec): 60 Intensity: Moderate Fetus A Monitor: External (US) Heart Rate Baseline: 120 Presentation: Cephalic Variability: Moderate (6-25 BPM) Categories: Category I Accelerations: 15 X 15 Decelerations: None Amniotic Membrane Status: Ruptured (membranes ruptured after cervical exam while seated on the toilet) Rupture Method: Spontaneous Amniotic Fluid: Clear Amount: mod Assessment and Plan Assessment and plan (1) Encounter for induction of labor: Status: Acute Assessment and plan: Will continue misoprostol per protocol. Ambien offered for sleep and comfort measures. Anticipate . Objective Abnormal lab results 04/19/25 04/19/25 Range/Units 08:15 08:29 WBC 12.34 H (4.4-10.8) 10^3/uL Chloride 108 H (98-107) mmol/L Glucose 108 H (74-106) mg/dL U Random Total Protein 36.6 H (1.0-14.0) mg/dL Temp Pulse Resp BP Pulse Ox 98.2 F 75 16 137/79 99 04/19/25 20:55 04/19/25 20:47 04/19/25 18:21 04/19/25 20:47 04/19/25 18:21 Laboratory Results WBC 12.34 10^3/uL (4.4-10.8) H 04/19/25 08:29 RBC 4.22 10^6/uL (3.93-5.22) 04/19/25 08:29 Hgb 12.5 g/dL (11.2-15.7) 04/19/25 08:29 Hct 37.0 % (36.0-46.0) 04/19/25 08:29 MCV 88 fL (80-95) 04/19/25 08:29 MCH 29.6 pg (27.0-33.0) 04/19/25 08:29 MCHC 33.8 % (32.0-36.0) 04/19/25 08:29 RDW 12.7 % (11.7-14.6) 04/19/25 08:29 Plt Count 321 10^3/uL (130-400) 04/19/25 08:29 MPV 9.9 fL (8.0-11.0) 04/19/25 08:29 Sodium 138 mmol/L (136-145) 04/19/25 08:29 Potassium 3.6 mmol/L (3.5-5.1) 04/19/25 08:29 Chloride 108 mmol/L (98-107) H 04/19/25 08:29 Carbon Dioxide 20.6 mmol/L (20.0-31.0) 04/19/25 08:29 Anion Gap 9.4 mmol/L (3-11) 04/19/25 08:29 BUN 13 mg/dL (9-23) 04/19/25 08: Creatinine 0.76 mg/dL (0.55-1.02) 04/19/25 08:29 Est GFR (CKD-EPI 2020) 85.50 (mL/min/1.73m2) 04/19/25 08:29 Glucose 108 mg/dL (74-106) H 04/19/25 08:29 Calcium 8.8 mg/dL (8.3-10.6) 04/19/25 08:29 Total Bilirubin 0.40 mg/dL (0.2-1.2) 04/19/25 08:29 AST 19 U/L (<34) 04/19/25 08: ALT 21 U/L (10-49) 04/19/25 08:29 Alkaline Phosphatase 116 U/L (46-116) 04/19/25 08:29 Total Protein 6.3 g/dL (5.7-8.2) 04/19/25 08:29 Albumin 3.7 g/dL (3.2-5.0) 04/19/25 08:29 Ur Random Creatinine 170.80 mg/dL 04/19/25 08:15 U Random Total Protein 36.6 mg/dL (1.0-14.0) H 04/19/25 08:15 U [place] Prot/Creat Ratio 0.21 mg/mg Cr 04/19/25 08:15 ABO/Rh A Positive 04/19/25 08:29 Antibody Screen NEGATIVE 12/01/25 08:29 Vital Signs Reviewed: Yes Subjective Patient Reports: No new Complaints Interval history since last seen: Millicent using position changes and has been resting comfortably. Results Hemoglobin/Hematocrit: Hgb 12.5 g/dL (11.2-15.7) 04/19/25 08:29 Hct 37.0 % (36.0-46.0) 04/19/25 08:29 Abnormal Lab Findings: Abnormal Labs 04/19/25 04/19/25 08:15 08:29 WBC 12.34 H Chloride 108 H Glucose 108 H U Random Total Protein 36.6 H
[2025-04-19] MEDS: Zolpidem 5 MG TAB 10 MG PO (23:02)
[2025-04-19] MEDS: Calcium Carbonate *TUMS* 500 MG CHEW 1000 MG PO (23:02)
[2025-04-20] VITALS (63 sets, daily range): BP systolic 134–164; BP diastolic 65–80; PULSE 0–97; RESP 17–18; TEMP 36.6–36.9; O2SAT 99
[2025-04-20] MEDS: Lactated Ringers 1,000 ML 999 ML IV (03:10)
--- NOTE | 2025-04-20 03:47 | PGE_ITS ---
Date of service: 04/20/25 Time of Service: 03:47 Informed Consent Informed Consent: Induction of Labor and Risk,Benefits,Alternatives Discussed Pelvic Exam Dilation: 4 Effacement (%): 80 station: -1 Cervix Position: posterior Consistency: medium Comments: SROM occurred earlier for a moderate amount of clear fluid Contractions Monitor Mode: External Contraction Frequency(min): every 2-3 Contraction Duration(sec): 50-60 Intensity: Moderate/Strong Fetus A Monitor: External (US) Heart Rate Baseline: 130 Presentation: Cephalic Variability: Moderate (6-25 BPM) Categories: Category I FHR Rhythm: Regular Accelerations: 15 X 15 Decelerations: Variable (variable noted on the novii. Did not recur with ultrasound) Recurrence: Episodic Amniotic Membrane Status: Ruptured Rupture Method: Spontaneous Amniotic Fluid: Clear Amount: moderate Assessment and Plan Assessment and plan (1) Encounter for induction of labor: Status: Acute Assessment and plan: Millicent hopes to use nitrous oxide for pain relief but is coping well now. Anticipate Objective Abnormal lab results 04/19/25 04/19/25 Range/Units 08:15 08:29 WBC 12.34 H (4.4-10.8) 10^3/uL Chloride 108 H (98-107) mmol/L Glucose 108 H (74-106) mg/dL U Random Total Protein 36.6 H (1.0-14.0) mg/dL Temp Pulse Resp BP Pulse Ox 97.9 F 76 16 139/80 99 04/19/25 23:14 04/20/25 03:12 04/19/25 18:21 04/20/25 02:39 04/19/25 18:21 Laboratory Results WBC 12.34 10^3/uL (4.4-10.8) H 04/19/25 08:29 RBC 4.22 10^6/uL (3.93-5.22) 04/19/25 08:29 Hgb 12.5 g/dL (11.2-15.7) 04/19/25 08:29 Hct 37.0 % (36.0-46.0) 04/19/25 08:29 MCV 88 fL (80-95) 04/19/25 08:29 MCH 29.6 pg (27.0-33.0) 04/19/25 08:29 MCHC 33.8 % (32.0-36.0) 04/19/25 08: RDW 12.7 % (11.7-14.6) 04/19/25 08:29 Plt Count 321 10^3/uL (130-400) 04/19/25 08:29 MPV 9.9 fL (8.0-11.0) 04/19/25 08:29 Sodium 138 mmol/L (136-145) 04/19/25 08:29 Potassium 3.6 mmol/L (3.5-5.1) 04/19/25 08:29 Chloride 108 mmol/L (98-107) H 04/19/25 08:29 Carbon Dioxide 20.6 mmol/L (20.0-31.0) 04/19/25 08:29 Anion Gap 9.4 mmol/L (3-11) 04/19/25 08:29 BUN 13 mg/dL (9-23) 04/19/25 08:29 Creatinine 0.76 mg/dL (0.55-1.02) 04/19/25 08:29 Est GFR (CKD-EPI 2020) 85.50 (mL/min/1.73m2) 04/19/25 08:29 Glucose 108 mg/dL (74-106) H 04/19/25 08:29 Calcium 8.8 mg/dL (8.3-10.6) 04/19/25 08:29 Total Bilirubin 0.40 mg/dL (0.2-1.2) 04/19/25 08:29 AST 19 U/L (<34) 04/19/25 08:29 ALT 21 U/L (10-49) 04/19/25 08:29 Alkaline Phosphatase 116 U/L (46-116) 04/19/25 08:29 Total Protein 6.3 g/dL (5.7-8.2) 04/19/25 08:29 Albumin 3.7 g/dL (3.2-5.0) 04/19/25 08:29 Ur Random Creatinine 170.80 mg/dL 04/19/25 08:15 U Random Total Protein 36.6 mg/dL (1.0-14.0) H 04/19/25 08:15 U [place] Prot/Creat Ratio 0.21 mg/mg Cr 04/19/25 08:15 ABO/Rh A Positive 04/19/25 08:29 Antibody Screen NEGATIVE 04/19/25 08:29 Vital Signs Reviewed: Yes Notable Details: BP 139/80 Subjective Patient Reports: New Complaints Interval history since last seen: Millicent took ambien PO and has been unable to sleep due to discomfort. She was having difficulty getting comfortable in the bed. She was moved to her hands and knees on the ball and external US was placed. Results Hemoglobin/Hematocrit: Hgb 12.5 g/dL (11.2-15.7) 04/19/25 08:29 Hct 37.0 % (36.0-46.0) 04/19/25 08:29 Abnormal Lab Findings: Abnormal Labs 04/19/25 04/19/25 08:15 08:29 WBC 12.34 H Chloride 108 H Glucose 108 H U Random Total Protein 36.6 H
[2025-04-20] MEDS: NIFEdipine-CR 30 MG TABCR PO (06:22)
[2025-04-20] MEDS: Oxytocin/Normal Saline 30 UNIT/500 ML BAG 95 UNITS IV (07:00)
--- NOTE | 2025-04-20 07:07 | PLAC_PTH ---
PATIENT: Millicent Tijerina LOC: OBS U#:[id number] AGE/SX: 35/F ROOM: OBS.304 RE04/19/[address]: Agustina Castellanos : 1990 BED: A DIS: 04/22/2025 SPEC #: [id number] RECD: 04/20/25 18:10 STATUS: JENNIFER REQ #: [id number] TIAN: 04/20/25 07:[address]: Agustina Castellanos DEPT: Surgical Specimen RECD BY: Marie Torres ENTERED: 04/20/25 18:11 SP TYPE: PLAC OTHR DR: Lyndsey Osman Tissues: 1 - PLACENTA (3RD TRIMESTER) Procedures: GROSS AND MICRO LEVEL 5 Comments: [id number]
--- NOTE | 2025-04-20 07:53 | W.OBDELIVERY ---
Date of service: 04/20/25 Time of Service: 07:53 OB Labor/ Delivery Information Baby A Delivery Delivery Method: Spontaneaous Presentation: Cephalic Vertex Position: Left Occipital Anterior Cord Description-Baby A: 3 Vessels Cord Description Comment: short cord Amniotic Fluid: Clear Estimated Blood Loss: 300 Delivery Outcome: Liveborn Infant Transferred: Remains with Mother Note: Millicent used the tub and nitrous oxide for labor discomfort and progressed rapidly in the tub and had an urge to push. FHTs 130s during first stage of labor. FHTs 130s in second stage. She progressed to full dilation and began pushing. She was moved out of the tub and second stage huddle was done. She moved to hands and knees on the bed and began bearing down. There was terminal bradycardia noted. A scalp electrode was placed but was not functional and heart rate returned to 120 just before delivery. Spontaneous delivery of male infant delivered in STACI position. Baby was placed in mother's arms and dried and stimulated. A short cord was noted. Spontaneous cry. Cord was clamped and cut by the baby's father . The placenta delivered spontaneously and appears to by intact with a three vessel cord. Pitocin 10 units IM was administered before delivery of the placenta. The perineum was inspected and a second degree laceration was repaired . The baby did breastfeed. After delivery, Mother and baby and father of the baby were stable and bonding well in the delivery room and there were no complications. Placenta was sent to pathology. Labor/Delivery Information Group Beta Strep: Negative Rubella Status: Immune Blood Type: A+ Varicella Immunity: Immune Interventions Repair of Laceration Type: Perineal and Sulcus (small bilateral sulcus tear), Laceration Extension: Second Degree. Sponge Count Correct: No Sponges Placed in Vagina, Sharp Count Correct: Yes. Laceration Repair Note: second degree laceration was repaired under local anesthesia and nitrous oxide for analgesia
[2025-04-20] MEDS: Lidocaine 1% Multi-Dose 20 ML VIAL IJ (07:55)
[2025-04-20] MEDS: Acetaminophen 325 MG TAB 650 MG PO ×2 (09:01→23:33)
[2025-04-20] MEDS: Ibuprofen 600 MG TAB PO ×2 (09:02→23:33)
[2025-04-20] MEDS: Hamamelis Leaf/Glycerin 100 EACH BOX PR (09:04)
[2025-04-21 02:22] VITALS: BP 136/75; PULSE 64; RESP 18; TEMP 36.7
[2025-04-21 07:30] LABS: Abs Immature Grans 0.07 10^3/uL (0.0-0.06); HCT 33.8 % (36.0-46.0); HGB 11.3 g/dL (11.2-15.7); Immature Grans % 0.4 %; MCH 30.4 pg (27.0-33.0); MCHC 33.4 % (32.0-36.0); MCV 91 fL (80-95); MPV 10.4 fL (8.0-11.0); Platelet Count 299 10^3/uL (130-400); RBC 3.72 10^6/uL (3.93-5.22); RDW 13.2 % (11.7-14.6); RDW-SD 42.5 fL; WBC 16.43 10^3/uL (4.4-10.8)
[2025-04-21 07:50] VITALS: BP 140/83; PULSE 75; RESP 16; TEMP 36.6; O2SAT 16
[2025-04-21] MEDS: Acetaminophen 325 MG TAB 650 MG PO ×3 (08:00→20:36)
[2025-04-21] MEDS: NIFEdipine-CR 30 MG TABCR PO (08:00)
[2025-04-21] MEDS: Docusate Sodium 100 MG CAP PO (08:01)
[2025-04-21] MEDS: Ibuprofen 600 MG TAB PO ×3 (08:01→20:36)
--- NOTE | 2025-04-21 09:41 | OBPPV_ITS ---
Date of service: 04/21/25 Time of Service: 09:41 Assessment and Plan Assessment and plan (1) Term delivered: Status: Acute Assessment and plan: A: PPD#1, cHTN controlled by nifedipine 30 mg daily Nml recovery from , is underway Processing experience, overall satisfied with care P: Provide and support Pt declines BCM, vasectomy is planned Will discharge to home tomorrow (2) Encounter for care of lactating mother: Status: Acute Subjective Subjective Patient comments: No complaints, Pain well controlled, Tolerating diet and Flatus present Patient's Mood: happy baby status: Doing well, Rooming in and Strong Bonding Observed [place] feeding status: Exclusively breast feeding Exam Physical Exam Vital signs: Temp Pulse Resp BP Pulse Ox 98.1 F 64 18 136/75 99 04/21/25 02:22 04/21/25 02:22 04/21/25 02:22 04/21/25 02:22 04/20/25 07:25 Vital Signs Reviewed: Yes Constitutional Constitutional: no acute distress, average body habitus and cooperative HEENT Exam HEENT Exam: Normal Neck Exam Neck Exam: Normal Breast Exam Bilateral: Breast Exam: Normal and Soft Nipple Exam: Normal and Uninjured Respiratory Exam Respiratory Exam: Normal Cardiovascular Exam Cardiovascular Exam: Normal Abdominal Exam Abdomen: Other (soft, nontender) Fundal Exam Fundus: Below Umbilicus and Firm Rectal Exam Rectal Exam: Normal Exam Perineum: Repair Intact Extremities Exam Extremity Exam: Normal Back/Spine/Pelvis Exam Back Exam: Normal Skin Exam Skin Exam: Normal Neurological Exam Neurological Exam: Normal Psychiatric Exam Psychiatric Exam: Normal Results Hemoglobin/Hematocrit: Hgb 11.3 g/dL (11.2-15.7) 04/21/25 06:08 Hct 33.8 % (36.0-46.0) L 04/21/25 06:08
[2025-04-21 12:45] VITALS: BP 135/80; PULSE 103; RESP 16; TEMP 36.6; O2SAT 98
[2025-04-21 16:15] VITALS: BP 123/76; PULSE 90; RESP 16; TEMP 36.3; O2SAT 97
[2025-04-21 21:00] VITALS: BP 144/79; PULSE 93; RESP 20; TEMP 37.1; O2SAT 98
[2025-04-22] MEDS: Acetaminophen 325 MG TAB 650 MG PO ×2 (02:40→09:01)
[2025-04-22] MEDS: Docusate Sodium 100 MG CAP PO (02:41)
[2025-04-22] MEDS: Ibuprofen 600 MG TAB PO ×2 (02:41→09:00)
[2025-04-22 08:35] VITALS: BP 142/87; PULSE 74; RESP 16; TEMP 36.6; O2SAT 98
[2025-04-22] MEDS: Hamamelis Leaf/Glycerin 100 EACH BOX PR (09:00)
[2025-04-22] MEDS: NIFEdipine-CR 30 MG TABCR PO (09:01)
--- NOTE | 2025-04-22 09:18 | W.PM.OBDISCH ---
Date of service: 04/22/25 Time of Service: 09:18 DS: Diagnosis Discharge Diagnosis (1) Term delivered: Status: Acute Asessment and Plan: Caring for baby independently. Pain is managed well with oral analgesics. Voiding without difficulty. well with assistance and supplementing with donor milk. . A - stable mother and baby , Post day 2 P - Discharge to home. Routine post instructions. Sitz bath was recommended. [facility] up at [facility]. Discharge Plan Disposition Patient Disposition: Home Condition: Good Discharge Details Reason For Visit: Induction of Labor for Chronic Hypertension and Pr Admit Date/Time: 04/19/25 10:29 Admit Provider: Agustina Castellanos Attending Provider: Agustina Castellanos Primary Care Provider: Lyndsey Osman Hospital Course Hospital Course: Admitted for induction of labor due to chronic hypertension and development of proteinuria, cervical ripening done with onset of labor which rapidly progressed to on HD#2, nml recovery, plan discharge on PPD#2, pt plans . Home Meds and New Rx's Prescriptions: No Action albuterol sulfate 90 mcg/actuation HFA aerosol inhaler 2 puff IH ONCE PRN Zyrtec 10 mg capsule 10 mg PO DAILY PRN Classic 28 mg iron- 800 mcg tablet 1 tab PO DAILY nifedipine [Procardia XL] 30 mg tablet extended release 24hr 30 mg PO DAILY Qty: 30 0RF Discharge Instructions Additional Instructions: Please keep 2 and 6 week appointments with the carroter, call for any and all concerns. Stand Alone Forms: Instructions, Post Vaginal Deliver, Portal Information Activity:: Activity as Tolerated Equipment/Supplies:: No Equipment Needed Diet:: Normal Diet Discharge Orders Discharge Orders: Discharge Order (Routine); Ordered 04/22/25 Ordered By: Agustina Castellanos OB:DS Summary Summary Vaginal Delivery Method: Spontaneaous Laceration Description: Perineal and Sulcus (small bilateral sulcus tear) Laceration Extension: Second Degree Contraception Discussed Contraception Discussed: Yes Contraceptive Plan: Vasectomy, Infant Gender-Baby A: Male weight: 6 lb 7 oz Status at Discharge Functional status at discharge: independent ambulation Overall status at discharge: patient is back to baseline Mental Status: mental status grossly normal Speech and Movement: speech and movement normal Mood: congruent mood Affect: normal affect Exam Physical Exam Vital signs: Temp Pulse Resp BP Pulse Ox 98.8 F 93 H 20 144/79 H 98 04/21/25 21:00 04/21/25 21:00 04/21/25 21:00 04/21/25 21:00 04/21/25 21:00 Vital Signs Reviewed: Yes Constitutional Constitutional: no acute distress HEENT Exam HEENT Exam: Normal Neck Exam Neck Exam: Normal Respiratory Exam Respiratory Exam: Normal Fundal Exam Fundus: Below Umbilicus and Firm Rectal Exam Rectal Exam: Abnomal Exam Perineum: Discharge, Intact and Repair Intact External: Present normal urethra appearance Extremities Exam Extremity Exam: Normal; negative Calf Tenderness or Edema Skin Exam Skin Exam: Normal Psychiatric Exam Psychiatric Exam: Normal PFSH All Active Problems (Updated 04/21/25 @ 09:54 by Sheyla Wilder) Encounter for care of lactating mother (Acute) Term delivered (Acute) High thyroid stimulating hormone (TSH) level (Acute) Chronic hypertension during (Acute) Obesity (BMI 30.0-34.9) (Acute) Situational depression (Acute) 2023. Resulting from family stressors. 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 Normal Pap. 05/2020. Nl Pap/Neg HPV. Fatigue (Acute) Obtain TSH free T4 Medical History (Updated 04/21/25 @ 09:54 by Sheyla Wilder) Elevated BP without diagnosis of hypertension (01/15/17) BP at time of annual exam 140/78. Advanced maternal age, 1st Family history of thyroid disorder Chronic hypertension affecting Encounter for induction of labor Allergic reaction to Augmentin Contraception management Used OCPs in past - N/V, migraines. Doesn't want IUD. 2015. NuvaRing. 2024. Stopped NuvaRing: not sexually active. Amenorrhea Bleeding in early Routine screening for STI (sexually transmitted infection) Vulvar irritation Vulvar discomfort Periclitoral burning Rx with Lotrisone. Vaginal vestibule Rx with topical clobetasol. Asthma Elevated BP without diagnosis of hypertension BP 139/80 at time of annual exam 01/15/17. Surgical History Tonsillectomy Endoscopy Colonoscopy - IV Sedation Family History (Updated 11/27/24 @ 08:45 by Agustina Castellanos CNM) Brother Thyroid disease Sister Thyroid disease Father Lupus Hypertension Alcohol use disorder Mother Hypertension Alcohol use disorder Maternal Grandmother Diabetes Paternal Grandmother Diabetes Cancer imaging nurse cancer, unknown origin Paternal Aunt Breast cancer Other Personal history of malignant neoplasm Social History Smoking/Tobacco Use Status: Never Smoking risk assessment performed?: Yes Alcohol Intake: never Details: Stopped all recreational ETOH use in 2023. Drug use: Never Substance use type: does not use Adopted: No Caregiver/Support person: No Foster care: No Household members: family and other Details: Lives with Russ, her father. Mom lives in [place] Housing: other Details: Dad on probation for Number of Children: 0 Education Level: college Details: BA in child development. 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 Pets and animals: Yes (dog) Do you think of yourself as: straight/heterosexual Current gender identity: female What is your relationship status?: never Panel score (0-1 are the most socially isolated patients): 0 What type of physical activity do you participate in: walking Duration: 45-60 minutes/day Frequency: 1-2 times per week Seatbelt use: always Do you feel safe at home: Yes Victim of physical abuse: No Victim of emotional abuse: No Victim of sexual abuse: No Additional Social history: 2023. Father on probation for lewd and lascivious conduct with teen in 2019. Female Reproductive History Menstrual Age of Menarche: 11 Duration of menses: 3-5 days control method: vaginal ring History History 1 Para 0 Hx # Term Pregnancies 0 Multiple births 0 Hx # Pregnancies 0 Ectopic pregnancies 0 AB induced 0 Hx Number of Living Children 0 AB spontaneous 0 DS: Data Vitals/I&O Vitals and I&O: Vital Signs Temperature 98.8 F 04/21/25 21:00 Temperature Source Oral 04/21/25 16:15 Pulse 93 H 04/21/25 21:00 Pulse Rhythm Regular 04/21/25 20:35 Respiratory Rate 20 04/21/25 21:00 Respiratory Depth Normal 04/20/25 12:24 Blood Pressure 144/79 H 04/21/25 21:00 Blood Pressure Mean 100 04/21/25 21:00 Pulse Oximetry 98 04/21/25 21:00 Oxygen Delivery Method Room Air 04/19/25 13:56 Oxygen Flow Rate 0 04/19/25 13:56 Pain Level 4 04/22/25 09:01 Comment confirmed with manual 04/19/25 18:21 Intake & Output 04/21/25 04/21/25 04/22/25 11:59 23:59 11:59 Other: Urine Color Yellow Data Completed and Pending Pending Labs at Discharge: 04/19/25 04/19/25 04/21/25 08:15 08:29 06:08 WBC 12.34 H 16.43 H RBC 4.22 3.72 L Hgb 12.5 11.3 Hct 37.0 33.8 L MCV 88 91 MCH 29.6 30.4 MCHC 33.8 33.4 RDW 12.7 13.2 Plt Count 321 299 MPV 9.9 10.4 Immature Gran % 0.4 Neutrophils % 62.1 Lymphocytes % 30.2 Monocytes % 4.9 Eosinophils % 2.0 Basophils % 0.4 Nucleated RBC % 0.0 Absolute Neutrophils 10.20 H Absolute Lymphocytes 4.96 H Absolute Monocytes 0.81 H Absolute Eosinophils 0.33 Absolute Basophils 0.07 Sodium 138 Potassium 3.6 Chloride 108 H Carbon Dioxide 20.6 Anion Gap 9.4 BUN 13 Creatinine 0.76 Est GFR (CKD-EPI 2020) 85.50 Glucose 108 H Calcium 8.8 Total Bilirubin 0.40 AST 19 ALT 21 Alkaline Phosphatase 116 Total Protein 6.3 Albumin 3.7 Ur Random Creatinine 170.80 U Random Total Protein 36.6 H U [place] Prot/Creat Ratio 0.21 ABO/Rh A Positive Antibody Screen NEGATIVE
== END 2025-04-22 13:05 | disposition home or self-care (01) | DRG 807 ==
PROVIDERS: Advanced Practice Midwife; Admitting Provider Advanced Practice Midwife; PCP Family Medicine; Visit Provider Advanced Practice Midwife
DX: O10.92 Unspecified pre-existing hypertension complicating childbirth (principal); Z37.0 Single live birth; Z3A.37 37 weeks gestation of pregnancy; O99.214 Obesity complicating childbirth; O99.344 Other mental disorders complicating childbirth; E66.9 Obesity, unspecified; O70.1 Second degree perineal laceration during delivery; F32.A Depression, unspecified; O99.52 Diseases of the respiratory system complicating childbirth; J45.909 Unspecified asthma, uncomplicated; G89.29 Other chronic pain
CPT/HCPCS: 36415; 80053; 85027; 86850; 86900; 86901; 59025; 82565; 84156; 85025; 88307; J2003